=== PATIENT | female | born 1970 | race African-American/Black ===

== ENCOUNTER 2020-03-17 10:45 | Emergency (ER) | payer OTHER ==
--- NOTE | 2020-03-17 17:21 | RAD ---
RIGHT ELBOW FOUR VIEWS: 03/17/20 No fracture, dislocation, or joint effusion was seen. The bones and joint appear normal. IMPRESSION: No acute finding. POS: HOME
== END 2020-03-17 12:08 | disposition home or self-care (01) ==
LOC: BURERS 10:45
DX: M77.11 Lateral epicondylitis, right elbow (principal); J45.909 Unspecified asthma, uncomplicated; F31.9 Bipolar disorder, unspecified; F20.9 Schizophrenia, unspecified; F41.9 Anxiety disorder, unspecified; F50.9 Eating disorder, unspecified; F17.210 Nicotine dependence, cigarettes, uncomplicated; Z79.899 Other long term (current) drug therapy

== ENCOUNTER 2021-04-21 19:24 | Emergency (ER) | payer OTHER | END 2021-04-21 19:45 | disposition home or self-care (01) | LOC: BURERS 19:24 | DX: N95.1 Menopausal and female climacteric states (principal); F17.210 Nicotine dependence, cigarettes, uncomplicated | CPT/HCPCS: 99281 ==

== ENCOUNTER 2025-04-04 07:36 | Emergency (ER) | payer OTHER ==
[2025-04-04] MEDS ORDERED: Sulfameth/Trimethoprim DS 800-160mg TAB ONE (08:37)
== END 2025-04-04 08:47 | disposition home or self-care (01) ==
LOC: BURERS 07:36
DX: N76.2 Acute vulvitis (principal); L73.9 Follicular disorder, unspecified; F17.210 Nicotine dependence, cigarettes, uncomplicated
CPT/HCPCS: 99283